=== PATIENT | female | born 1955 | race Caucasian/White ===

== ENCOUNTER → 2016-12-10 | Outpatient (CLI) | payer OTHER ==
--- NOTE | 2016-12-10 09:34 | MR ---
MRI Left Ankle Without Contrast History: Ankle pain. Heel pain. Technique: MRI was performed of the left ankle using a 1.5 [employer] MRI system. Sagittal, coronal, and a xial imaging was obtained with standard imaging sequences. Comparisons: Radiographs October 2015 Findings: General: No significant bone marrow abnormality is visualized. No evidence for an osteochondral lesio n of the talar dome. No evidence for joint effusion. Ligaments: Anterior and posterior talofibular ligaments are intact and unremarkable as well as the ca lcaneofibular ligament. The anterior and posterior tibiofibular ligaments are intact. Deltoid ligamen t is unremarkable. Peroneal tendons: Minimal abnormal signal intensity is seen in the peroneal brevis tendon without att enuation. Peroneal longus tendon is unremarkable. Superior peroneal retinaculum is unremarkable. Posterior medial tendons: Unremarkable. Anterior tendons: Mild abnormal signal intensity is seen in the extensor hallucis longus tendon anter ior to the talar head and neck representing mild tendinopathy or strain. The other visualized anterio r tendons are unremarkable. Achilles tendon: Minimal fluid is seen between the distal Achilles tendon and posterior calcaneus. Ac hilles tendon itself is unremarkable. Plantar fascia: The medial cord of the plantar fascia is enlarged and heterogeneous with discontinuit y of fibers at the insertion to the calcaneus and extending for 3 cm. There is mild adjacent bone mar row edema in the calcaneus. Mild abnormal signal intensity is seen in the lateral cord of the plantar fascia. Impression: 1. Moderate to severe plantar fasciitis with partial tear most severe at the medial cord of the plant ar fascia and adjacent mild reactive bone marrow edema. 2. Mild tendinopathy or strain extensor hallucis longus tendon at the level of the talar head and nec k. 3. Minimal tendinopathy peroneal brevis tendon. 4. Minimal retrocalcaneal bursitis.
== END ==
LOC: FIMAGING 07:57
PROVIDERS: ATTEND Internal Medicine Rheumatology
DX: M72.2 Plantar fascial fibromatosis (principal); M65.272 Calcific tendinitis, left ankle and foot

== ENCOUNTER → 2017-01-14 | Outpatient (CLI) | payer OTHER | LOC: FIMAGING 07:14 | PROVIDERS: ATTEND Internal Medicine Rheumatology | DX: K86.89 Other specified diseases of pancreas (principal) ==

== ENCOUNTER 2017-01-31 11:09 | Day surgery (SDC) | payer OTHER ==
[2017-01-31] MEDS ORDERED: LIDOCAINE 1% 5 ML SDV ID PRN (12:03)
[2017-01-31] MEDS ORDERED: LR 1,000 ML IV ONE (12:03)
[2017-01-31] MEDS ORDERED: PROPOFOL/EMULSION 500 MG/50 ML BOTTLE IV ONE (12:53)
[2017-01-31] MEDS ORDERED: MIDAZOLAM 2 MG/2 ML VIAL ONE (12:53)
--- NOTE | 2017-01-31 15:06 | GPN ---
[f rep st] PROCEDURE NOTE DATE OF PROCEDURE: 01/31/2017 PROCEDURE: Esophagogastroscopy with biopsy, endoscopic ultrasound with fine-needle aspiration. INDICATION: The patient is a 61-year-old female with complaints of nausea. Had a recent ultrasound as well as MRI of the spine which did reveal a dilated common bile duct. No mass lesions seen. Dmitry hilliard presents for further evaluation. CONSENT: Risks, benefits, and alternatives of the procedure were discussed in great detail with the patient. Risks of infection, bleeding, perforation, sedation, pancreatitis were discussed. All qu estions were answered. Informed consent was obtained. MEDICATIONS: Propofol. Please see Anesthesiology record for details. ESTIMATED BLOOD LOSS: Insignificant. ESOPHAGOGASTROSCOPY EXAMINATION: The Olympus upper endoscope was introduced via the mouth and advan nina to the esophagus. The proximal, distal, and mid esophagus were normal in appearance. The stomach was entered and closely examined, including retroflexed views of angulus, cardia and fun dus. The patient was noted to have a small hiatal hernia. The mucosa in the antrum and body of the stomach was erythematous in a patchy distribution and biops ies were taken. The duodenum was entered and patchy erythema was seen in the duodenal bulb and biopsies were taken. The duodenal bulb and second portion of duodenum were normal in appearance. ENDOSCOPIC ULTRASOUND EXAMINATION: The Olympus linear echoendoscope was inserted via the mouth and advanced to the second portion of the duodenum. The pancreas was carefully examined from the uncina te process to the tail where the spleen was seen. The pancreatic parenchyma had hyperechoic foci. There were dilated side branches and the main pancreatic duct wall was hyperechoic. Lobulations were also seen. In the closer area of the lobulations, multiple lymph nodes were seen t hat were approximately 1 cm in size. Doppler was used to rule out any vessel breach, and 1 pass was made with a [employer] 22-gauge needle into the lesion. Cytology preliminary report reveale d benign lymphocytes. The common bile duct was seen and measured approximately 9 mm. No stone, stricture, stenosis was no carly. The pancreatic duct was seen merging with the common bile duct. The ampulla was also visualized endoscopically with the side-viewing EUS scope and was normal in cleve earance. No obvious liver lesions were noted. The gallbladder was seen without stones, stricture, stenosis. IMPRESSION: 1. Parenchymal changes in the pancreas. 2. Peripancreatic node status post fine-needle aspiration. 3. Gastritis status post biopsy. 4. Duodenitis status post biopsy. 5. Parenchymal changes may represent chronic pancreatitis. RECOMMENDATIONS: 1. Repeat CT scan in 6 months. 2. Follow up on biopsy and FNA results. /[id number]/MODL
== END 2017-01-31 14:51 | disposition home or self-care (01) ==
LOC: FSGY 11:09
PROVIDERS: ATTEND Internal Medicine Gastroenterology
PROC: 0DB68ZX Excision of Stomach, Via Natural or Artificial Opening Endoscopic, Diagnostic (ICD-10-PCS; principal; 2017-01-31 13:00)
PROC: 0DB98ZX Excision of Duodenum, Via Natural or Artificial Opening Endoscopic, Diagnostic (ICD-10-PCS; principal; 2017-01-31 13:00)
DX: R11.0 Nausea (principal); K29.80 Duodenitis without bleeding; K29.70 Gastritis, unspecified, without bleeding; K21.9 Gastro-esophageal reflux disease without esophagitis; K44.9 Diaphragmatic hernia without obstruction or gangrene
CPT/HCPCS: J2250; J2704

== ENCOUNTER → 2017-05-25 | Outpatient (CLI) | payer OTHER | LOC: FIMAGING 09:38 | PROVIDERS: ATTEND Nurse Practitioner Family | DX: Z12.31 Encounter for screening mammogram for malignant neoplasm of breast (principal) | CPT/HCPCS: G0202 ==

== ENCOUNTER → 2017-07-01 | Outpatient (CLI) | payer OTHER ==
[~2017-07-01] MED LIST: GADOBUTROL 10 ML VIAL IVP ONE
== END ==
LOC: FIMAGING 09:32
PROVIDERS: ATTEND Internal Medicine Rheumatology
DX: R53.1 Weakness (principal); I77.9 Disorder of arteries and arterioles, unspecified; M06.9 Rheumatoid arthritis, unspecified; Z87.891 Personal history of nicotine dependence
CPT/HCPCS: 70553; 93880; A9585

== ENCOUNTER → 2018-06-09 | Outpatient (CLI) | payer OTHER | LOC: FIMAGING 10:49 | PROVIDERS: ATTEND Internal Medicine Rheumatology | DX: M06.09 Rheumatoid arthritis without rheumatoid factor, multiple sites (principal); M19.071 Primary osteoarthritis, right ankle and foot; M19.072 Primary osteoarthritis, left ankle and foot | CPT/HCPCS: 86225-90; 86235-90 ==

== ENCOUNTER → 2018-06-09 | Outpatient (CLI) | payer OTHER | LOC: FIMAGING 10:02 | PROVIDERS: ATTEND Nurse Practitioner Family | DX: Z12.31 Encounter for screening mammogram for malignant neoplasm of breast (principal) ==